=== PATIENT | male | born 1985 | race Two or more races ===

== ENCOUNTER 2023-01-18 09:40 | Emergency (ER) | payer SELFPAY ==
[2023-01-18] MEDS ORDERED: Acetaminophen/HYDROcodone 325-10 MG Tab PO ONE (10:20)
== END 2023-01-18 12:06 | disposition home or self-care (01) ==
LOC: MW.ED 09:40
DX: M54.41 Lumbago with sciatica, right side (principal); M54.42 Lumbago with sciatica, left side
CPT/HCPCS: 72100; 99283; A9270

== ENCOUNTER 2024-07-30 12:19 | Emergency (ER) | payer SELFPAY ==
[2024-07-30] MEDS: Ibuprofen 600 MG Tab PO ONE (13:33)
[2024-07-30] MEDS: Diphtheria,Pertussis(Acell),Tetanus Vaccine 0.5 ML Syringe IM ONE (13:34)
[2024-07-30] MEDS: Lidocaine 1% 5 ML VIAL INJECT ONE (13:59)
[2024-07-30] MEDS: Cephalexin 500 MG Cap PO ONE (14:48)
== END 2024-07-30 14:52 ==
LOC: MW.ED 12:19
DX: S02.401A Maxillary fracture, unspecified side, initial encounter for closed fracture (principal); S02.2XXA Fracture of nasal bones, initial encounter for closed fracture; S61.411A Laceration without foreign body of right hand, initial encounter; Z23 Encounter for immunization; Z75.8 Other problems related to medical facilities and other health care; W26.8XXA Contact with other sharp object(s), not elsewhere classified, initial encounter
CPT/HCPCS: 12002; 12013; 70450; 70486; 73130; 90471; 90715; 99284; A9270; 99283; J3490